=== PATIENT | female | born 1980 | race Two or more races ===

== ENCOUNTER 2024-04-01 10:08 | Emergency (ER) | payer MEDICAID, OTHER ==
[~2024-04-01] VITALS: Ht 162.6 cm; Wt 157.1 kg
[2024-04-01 11:42] VITALS: BP 141/77; PULSE 62; RESP 17; TEMP 98; O2SAT 96
[2024-04-01 12:25] LABS: Basophils # (auto) 0 10 ^3/uL (0-0.2); Basophils % (auto) 0.5 % (0.0-2.0); Eosinophils # (auto) 0.3 10 ^3/uL (0-0.8); Eosinophils % (auto) 2.9 % (0.0-7.0); Lymphocytes # (auto) 2.6 10 ^3/uL (0.4-5.4); Lymphocytes % (auto) 27.5 % (10.0-50.0); Mean Corpuscular Hemoglobin 30.4 pg (28.0-32.0); Mean Corpuscular Hgb Conc. 33.3 g/dL (32.0-36.0); Mean Corpuscular Volume 91.1 fL (80.0-100.0); Monocytes # (auto) 0.7 10 ^3/uL (0-1.3); Monocytes % (auto) 6.9 % (0.0-12.0); Neutrophils # (auto) 5.9 10 ^3/uL (1.6-8.6); Neutrophils % (auto) 62.2 % (37.0-80.0); Platelet Count (auto) 318 10^3/uL (140-450); Red Blood Cells 4.28 10^6/uL (4.0-5.20); Red Cell Distribution Width 13.4 % (11.8-14.3); White Blood Cell 9.5 10^3/uL (4.4-10.8)
[2024-04-01 12:40] LABS: Chloride 108 mmol/L (98-107); Potassium 4.3 mmol/L (3.5-5.1); Sodium 141 mmol/L (136-145)
[2024-04-01 12:41] LABS: Anion Gap 5 (5-15); Calcium 10.2 mg/dL (8.7-10.4); Carbon Dioxide 28 mmol/L (20-31)
[2024-04-01 12:46] LABS: BUN/Creatinine Ratio 16.7 (10.0-20.0); Blood Urea Nitrogen 12 mg/dL (9-23); Glucose 86 mg/dL (74-106)
== END 2024-04-01 13:01 | disposition home or self-care (01) ==
LOC: ER 10:08
DX: R04.0 Epistaxis (principal)
CPT/HCPCS: 36415; 80048; 85025

== ENCOUNTER 2024-10-03 20:42 | Inpatient (IN) | payer MEDICAID ==
[~2024-10-03] VITALS: Ht 162.6 cm; Wt 65.2 kg
[2024-10-03 21:33] LABS: Basophils # (auto) 0.1 10 ^3/uL (0-0.2); Basophils % (auto) 0.3 % (0.0-2.0); Eosinophils # (auto) 0.1 10 ^3/uL (0-0.8); Eosinophils % (auto) 0.6 % (0.0-7.0); Hematocrit 42.7 % (36.0-46.0); Hemoglobin 14.2 g/dL (12.2-16.2); Lymphocytes # (auto) 1.1 10 ^3/uL (0.4-5.4); Lymphocytes % (auto) 4.5 % (10.0-50.0); Mean Corpuscular Hemoglobin 30.1 pg (28.0-32.0); Mean Corpuscular Hgb Conc. 33.3 g/dL (32.0-36.0); Mean Corpuscular Volume 90.3 fL (80.0-100.0); Monocytes # (auto) 1.8 10 ^3/uL (0-1.3); Monocytes % (auto) 7.5 % (0.0-12.0); Neutrophils # (auto) 20.7 10 ^3/uL (1.6-8.6); Neutrophils % (auto) 87.1 % (37.0-80.0); Nucleated Red Blood Cells % 0.5 %; Platelet Count (auto) 274 10^3/uL (140-450); Red Blood Cells 4.73 10^6/uL (4.0-5.20); Red Cell Distribution Width 13.9 % (11.8-14.3); White Blood Cell 23.8 10^3/uL (4.4-10.8)
[2024-10-03 21:40] LABS: Chloride 103 mmol/L (98-107); Potassium 3.7 mmol/L (3.5-5.1); Sodium 139 mmol/L (136-145)
[2024-10-03 21:41] LABS: Anion Gap 11 (5-15); Calcium 10.1 mg/dL (8.7-10.4); Carbon Dioxide 25 mmol/L (20-31)
[2024-10-03 21:46] LABS: BUN/Creatinine Ratio 13.8 (10.0-20.0); Blood Urea Nitrogen 11 mg/dL (9-23); Glucose 98 mg/dL (74-106)
--- NOTE | 2024-10-03 21:49 | DVH ---
Clinical History: right leg pain Comparison: None Technique: Duplex Doppler evaluation of the deep venous system of the right lower extremity from the common femo ral vein to the popliteal vein including color Doppler and spectral/pulsed waveform analysis was perf ormed. Findings: The common femoral vein demonstrates appropriate compressibility and waveform variability. There is compressibility/patency of the great saphenous vein at the proximal thigh. The femoral vein demonstrates appropriate compressibility and waveform variability. The deep femoral vein demonstrates appropriate compressibility and waveform variability. The popliteal vein demonstrates appropriate compressibility and waveform variability. There is normal compressibility at the tibioperoneal trunk. Impression: 1. No RIGHT deep venous thrombosis. 2. If clinical concern/symptoms persist or worsen, short-interval follow-up study is suggested.
--- NOTE | 2024-10-03 22:10 | ED.PDOC ---
History of Present Illness(SKN HPI Comments 44-YEAR-OLD FEMALE PRESENTS TO ER WITH COMPLAINTS OF RIGHT LEG PAIN X3 DAYS. PATIENT WITH PAST MEDICAL HISTORY SIGNIFICANT FOR CHF, HYPERTENSION, HYPERLIPIDEMIA, MD AND CELLULITIS OF RIGHT LOWER EXTREMITY PRESENTS TO ER FOR EVALUATION OF RIGHT LOWER LEG PAIN/SWELLING/REDNESS WITH ASSOCIATED CHILLS AND FEVER X 3 DAYS. STATES SHE HAS HAD SIMILAR SYMPTOMS WHERE SHE HAS HAD TO BE ADMITTED FOR CELLULITIS OF RIGHT LEG. PATIENT ALSO ENDORSES A PRODUCTIVE COUGH WITH GREEN PHLEGM THAT SHE HAS HAD X2 DAYS. DENIES SHORTNESS OF BREATH, CHEST PAIN, HEADACHE OR ANY FURTHER SYMPTOMS/COMPLAINTS Chief Complaint: Flu like Time Seen by MD: 21:07 Primary Care Provider: Dr. Hardwick History of Present Illness: Nurses Notes, Medications, Allergies Allergies: Coded Allergies: NO KNOWN ALLERGIES (Unverified , 04/01/24) Information Source: Patient Mode of Arrival: EMS Past Medical History PAST MEDICAL HISTORY: CHF, High Lipids, HTN, MD Past Medical History (Other): CELLULITIS RIGHT LOWER EXTREMITY Surgical History (Other): GASTRIC SLEEVE Family History Family History: Unknown Social History Smoker: Non-Smoker Alcohol: Denies ETOH Use Drugs: Denies Drug Use Lives In: Home Constitutional: reports: others ( STATED IN HPI) EENTM: denies: blurred vision, double vision, ear bleeding, ear discharge, ear drainage, ear pain, ear ringing, eye pain, eye redness, hearing loss, mouth pain, mouth swelling, nasal discharge, nose bleeding, nose congestion, nose pain, photophobia, tearing, throat pain, throat swelling, voice changes, others Respiratory: reports: others ( STATED IN HPI) Cardiovascular: denies: chest pain, dizzy spells, diaphoresis, Dyspnea on exertion, edema, irregular heart beat, left arm pain, lightheadedness, palpitations, PND, syncope, others Gastrointestinal: denies: abdomen distended, abdominal pain, blood streaked bowels, constipated, diarrhea, dysphagia, difficulty swallowing, hematemesis, melena, nausea, poor appetite, poor fluid intake, rectal bleeding, rectal pain, vomiting, others Genitourinary: denies: abnormal vagina bleeding, burning, dyspareunia, dysuria, flank pain, frequency, hematuria, incontinence, pain, , vagina discharge, urgency, others Neurological: denies: dizziness, fainting, headache, left sided numbness, left sided weakness, numbness, paresthesia, pre-existing deficit, right sided numbness, right sided weakness, seizure, speech problems, tingling, tremors, weakness, others Musculoskeletal: denies: back pain, gout, joint pain, joint swelling, muscle pain, muscle stiffness, neck pain, others Integumetry: reports: others ( STATED IN HPI) Allergic/Immunocompromised: denies: Difficulty Healing, Frequent Infections, Hives, Itching, others Hematologic/Lymphatic: denies: anemia, blood clots, easy bleeding, easy bruising, swollen glands, others Endocrine: denies: excessive hunger, excessive sweating, excessive thirst, excessive urination, flushing, intolerance to cold, intolerance to heat, unexplained weight gain, unexplained weight loss, others Psychiatric: denies: anxiety, bipolar disorder, depression, hopeless, panic disorder, schizophrenia, sleepless, suicidal, others Physical Exam General Appearance: No Apparent Distress, Obese HEENT: PERRL/EOMI Neck: Full Range of Motion, Non-Tender, Normal Respiratory: Chest Non-Tender, Lungs Clear, No Accessory Muscle Use, No Respiratory Distress, Normal Breath Sounds Cardiovascular: No Murmur, No Gallop, Regular Rate/Rhythm Breast Exam: Deferred Gastrointestinal: Non Tender, No Pulsatile Mass, Soft Genitalia: Deferred Pelvic: Deferred Rectal: Deferred Extremities: Calf tenderness (NOTED TO RIGHT LOWER CALF), Normal capillary refill, Normal range of motion Neurologic: Alert, 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 NO OPEN WOUNDS APPRECIATED) Peripheral Pulses: 2+ dorsalis pedis (R), 2+ dorsalis pedis (L) Lymphatic: No Adenopathy Was a procedure done? Was a procedure done?: No Sedation Sedation?: No Differential Diagnosis (INTG) Differential Diagnosis: Abrasion Differential Diagnosis: Abscess, Impetigo Abscess: Gas Gangrene Differential Diagnosis: Other (DVT) X-Ray, Labs, Meds, VS Vital Signs Date Time Temp Pulse Resp B/P (MAP) Pulse Ox O2 Delivery O2 Flow Rate FiO2 10/03/24 22:06 86 18 94 Room Air 10/03/24 21:59 98.8 98.8 5/1/25 21:40 100.1 87 16 117/61 (79) 94 100.1 10/03/24 21:40 Room Air* 0 21 10/03/24 20:49 99.2 86 18 127/61 (83) 94 99.2 Lab Test 10/03/24 21:50 10/03/24 21:40 10/03/24 21:20 Range/Units Lactic Acid Level 1.4 0.4-2.0 mmol/L Influenza Type A Antigen Negative Negative Influenza Type B Antigen Negative Negative SARS-CoV-2 Antigen (Rapid) Negative NEGATIVE White Blood Count 23.8 H 4.4-10.8 10^3/uL Red Blood Count 4.73 4.0-5.20 10^6/uL Hemoglobin 14.2 12.2-16.2 g/dL Hematocrit 42.7 36.0-46.0 % Mean Corpuscular Volume 90.3 80.0-100.0 fL Mean Corpuscular Hemoglobin 30.1 28.0-32.0 pg Mean Corpuscular Hemoglobin Concent 33.3 32.0-36.0 g/dL Red Cell Distribution Width 13.9 11.8-14.3 % Platelet Count 274 140-450 10^3/uL Mean Platelet Volume 7.1 6.9-10.8 fL Neutrophils (%) (Auto) 87.1 H 37.0-80.0 % Lymphocytes (%) (Auto) 4.5 L 10.0-50.0 % Monocytes (%) (Auto) 7.5 0.0-12.0 % Eosinophils (%) (Auto) 0.6 0.0-7.0 % Basophils (%) (Auto) 0.3 0.0-2.0 % Neutrophils # (Auto) 20.7 H 1.6-8.6 10 ^3/uL Lymphocytes # (Auto) 1.1 0.4-5.4 10 ^3/uL Monocytes # (Auto) 1.8 H 0-1.3 10 ^3/uL Eosinophils # (Auto) 0.1 0-0.8 10 ^3/uL Basophils # (Auto) 0.1 0-0.2 10 ^3/uL Nucleated Red Blood Cells 0.5 % Sodium Level 139 136-145 mmol/L Potassium Level 3.7 3.5-5.1 mmol/L Chloride Level 103 98-107 mmol/L Carbon Dioxide Level 25 20-31 mmol/L Anion Gap 11 5-15 Blood Urea Nitrogen 11 9-23 mg/dL Creatinine 0.80 0.550-1.02 mg/dL Glomerular Filtration Rate Calc 93 >90 mL/min BUN/Creatinine Ratio 13.8 10.0-20.0 Serum Glucose 98 74-106 mg/dL Calcium Level 10.1 8.7-10.4 mg/dL Current Medications Medications (Trade) Dose Ordered Sig/Earnest Route Start Time Stop Time Status Last Admin Acetaminophen (Tylenol Tablet) 650 mg ONCE ONCE PO 10/03/24 22:00 10/03/24 22:01 DC 10/03/24 22:25 Piperacillin Sod/ Tazobactam Sod 100 ml @ 100 mls/hr ONCE ONCE IV 10/03/24 22:30 10/03/24 23:29 DC 10/03/24 23:11 PATIENT: BETH SMITH IACCT: [id number] UNIT: [id number] : 1980 LOC: ER ROOM / BED: / AGE / SEX: 44 / F ADM STATUS: REG ER SERVICE 13 ORDERING PHYSICIAN: RODOLFO BROOKS PROCEDURE(s): RLDVT - RT Lower DVT REASON: right leg pain ORDER NUMBER(s): [id number], ACCESSION NUMBER(s): [id number] Clinical History: right leg pain Comparison: None Technique: Duplex Doppler evaluation of the deep venous system of the right lower extremity from the common femoral vein to the popliteal vein including color Doppler and spectral/pulsed waveform analysis was performed. Findings: The common femoral vein demonstrates appropriate compressibility and waveform variability. There is compressibility/patency of the great saphenous vein at the proximal thigh. The femoral vein demonstrates appropriate compressibility and waveform variability. The deep femoral vein demonstrates appropriate compressibility and waveform variability. The popliteal vein demonstrates appropriate compressibility and waveform variability. There is normal compressibility at the tibioperoneal trunk. Impression: 1. No RIGHT deep venous thrombosis. 2. If clinical concern/symptoms persist or worsen, short-interval follow-up jessica teague is suggested. ATED BY: EMBER POWELL Jr., DO DICTATED DATE/TIME: 10/03/242145 SIGNED BY: EMBER POWELL Jr., SIGNED DATE/TIME: 10/03/242145 CC: PATIENT: BETH SMITH IACCT: [id number] UNIT: [id number] : 1980 LOC: ER ROOM / BED: / AGE / SEX: 44 / F ADM STATUS: REG ER SERVICE 08 ORDERING PHYSICIAN: RODOLFO BROOKS PROCEDURE(s): CXR2 - CHEST TWO VIEWS ROUTINE REASON: COUGH ORDER NUMBER(s): [id number], ACCESSION NUMBER(s): [id number] CHEST RADIOGRAPH Indication: COUGH Technique: Frontal and lateral view of the chest was obtained Comparison: None FINDINGS: Lines and Tubes: None Lungs: Clear Pleura: No effusion. No pneumothorax. Cardiomediastinal contours: Unremarkable IMPRESSION: No abnormality demonstrated. ATED BY: VIDAL CRUZ MD DICTATED DATE/TIME: 10/03/242241 SIGNED BY: VIDAL CRUZ MD SIGNED DATE/TIME: 10/03/242241 CC: CBC REVIEWED-WBC 23.8 BMP REVIEWED-UNREMARKABLE LACTIC ACID REVIEWED - NORMAL BLOOD CULTURES ORDERED CHEST X-RAY ORDERED RIGHT LOWER DVT ULTRASOUND REVIEWED HEP-LOCK IV ORDERED ZOSYN IV ORDERED TYLENOL 650 MG P.O. ORDERED PATIENT RESTING COMFORTABLY AT BEDSIDE, IN NO DISTRESS PATIENT ADMITTED TO HOSPITALIST FOR CELLULITIS OF RIGHT LOWER EXTREMITY AND NEED FOR IV ANTIBIOTICS Time of 1ST Reevaluation: 21:54 Reevaluation 1ST: N/A Patient Education/Counseling: Diagnosis, Treatment, Prognosis, Need For Follow Up Family Education/Counseling: No Family Present Departure 1 Departure Time of Disposition: 22:12 Impression: Primary Impression: Cellulitis of right lower extremity Additional Impression: Morbid obesity with BMI of 50.0-59.9, adult Disposition: 09 ADMITTED INPATIENT Condition: Stable Critical Care Note Critical Care Time?: No Stability Stability form required: No Heart Score Heart Score: Heart Score Response (Comments) Value History N/A 0 EKG N/A 0 Age N/A 0 Risk Factors N/A 0 Troponin N/A 0 Total 0 RODOLFO BROOKS October 03, 2024 22:10
[2024-10-03] MEDS: ACETAMINOPHEN 325 MG TAB PO ONE (22:25)
[2024-10-03 22:26] LABS: COVID19 ANTIGEN SOFIA FIA NEGATIVE (NEGATIVE); Rapid Influenza A Negative (Negative); Rapid Influenza B Negative (Negative)
--- NOTE | 2024-10-03 22:45 | DVH ---
CHEST RADIOGRAPH Indication: COUGH Technique: Frontal and lateral view of the chest was obtained Comparison: None FINDINGS: Lines and Tubes: None Lungs: Clear Pleura: No effusion. No pneumothorax. Cardiomediastinal contours: Unremarkable IMPRESSION: No abnormality demonstrated.
[2024-10-03] MEDS: PIPERACILLIN-TAZOB 3.375GM 100 ML IV ONE (23:11)
[2024-10-04] VITALS (9 sets, daily range): BP systolic 103–143; BP diastolic 45–67; PULSE 57–70; RESP 16–20; TEMP 98–98.5; O2SAT 93–97
[2024-10-04] MEDS ORDERED: NITROGLYCERIN 0.4 MG SL TAB SL PRN (01:15)
[2024-10-04] MEDS ORDERED: MORPHINE SULFATE INJ 2 MG/ml SYRG IV PRN (01:15)
[2024-10-04] MEDS ORDERED: hydrALAZINE HCL 20 MG/ML VL IV PRN (01:15)
[2024-10-04] MEDS ORDERED: DOCUSATE SOD 100 MG CAP PO PRN (01:15)
[2024-10-04] MEDS ORDERED: ONDANSETRON HCL 4 MG/2 ML VIAL IV PRN (01:15)
--- NOTE | 2024-10-04 01:33 | DVHHP2 ---
History of Present Illness Reason for Visit: Cellulitis of right lower extremity History of Present Illness The patient is a 44-year-old female morbidly obese with past medical history of sleep apnea, CHF, hyperlipidemia, [place], right lower extremity cellulitis, and hypertension presented to [facility] ED with complaint of recurrent right leg redness/pain associated with fever, productive cough with green phlegm for the past 3 days. Patient was seen and evaluated in the ED, laboratory data shows WBC 23.8, platelets 274, sodium 139, potassium 3.7, BUN 11, creatinine 0.8 0, glucose 98, blood pressure 118/60, heart rate 86, temperature 100.1 F trending down to 98.8 F, O2 saturation 94% on oxygen. Patient was started on IV antibiotic regimen Zosyn, please see medication orders section in the computer. On my assessment, patient denies chest pain, no headache, no dizziness, no palpitation, no shortness of breath, no nausea, no vomiting, no fever, no chills. Patient was admitted for further evaluation and medical management. Past Medical History CHF, High Lipids, HTN, [place], Cellulitis of right lower extremity, Sleep apnea, Past Surgical History Gastric sleeves Family History Reviewed, noncontributory to the management of this case. Past Social History The patient lives at home, denies smoking, alcohol or illicit drugs abuse. Review of Systems Constitutional: No: Fever, Chills, Sweats, Weakness, Malaise, Other Eyes: No: Pain, Vision change, Conjunctivae inflammation, Eyelid inflammation, Other, Redness ENT: No: Ear pain, Ear discharge, Nose pain, Nose discharge, Nose congestion, Mouth pain, Mouth swelling, Throat pain, Throat swelling, Other Respiratory: Cough; No: Dry, Shortness of breath, SOB with excertion, Wheezing, Hemoptysis, Pleuritic Pain, Sputum, Wheezing, Other Cardiovascular: No: Chest Pain, Palpitations, Orthopnea, Paroxysmal Noc. Dyspnea, Edema, Lt Headedness, Other Gastrointestinal: No: Nausea, Vomiting, Abdominal Pain, Diarrhea, Constipation, Melena, Hematochezia, Other Genitourinary: No Dysuria, No Frequency, No Incontinence, No Hematuria, No Retention, No Other Musculoskeletal: other (Right leg cellulitis), leg pain (Right); No: neck pain, shoulder pain, arm pain, back pain, hand pain, foot pain Skin: Other (Right leg redness); No: Rash, Lesions, Jaundice, Bruising Neurological: No: Weakness, Numbness, Incoordination, Change in speech, Confusion, Seizures, Other Allergies: Coded Allergies: NO KNOWN ALLERGIES (Unverified , 04/01/24) Exam Vital Signs Vital Signs Date Time Temp Pulse Resp B/P (MAP) Pulse Ox O2 Delivery O2 Flow Rate FiO2 10/03/24 22:06 86 18 94 Room Air 10/03/24 21:59 98.8 98.8 10/03/24 21:40 117/61 (79) 10/03/24 21:40 0 21 General Appearance: Alert, Oriented X3, Cooperative, No acute distress HEENT: Atraumatic, PERRLA, EOMI, Mucous membr. moist/pink Respiratory: Normal air movement Cardiovascular: Regular rate, Normal S1, Normal S2, No murmurs Abdominal: Normal bowel sounds, Soft, No tenderness, No hepatospenomegaly, No masses Extremities: No clubbing, No cyanosis, No edema, Normal pulses, No tenderness/swelling Skin: No rashes, No breakdown, No significant lesion Neuro: Normal gait, Normal speech, Strength at 5/5 X4 ext, Normal tone, Sensation intact, Cranial nerves 3-12 NL, Reflexes 2+ Psych/Mental Status: Mental status NL, Mood NL Labs/Xrays Labs Test 10/03/24 21:50 10/03/24 21:40 10/03/24 21:20 Range/Units Lactic Acid Level 1.4 0.4-2.0 mmol/L Influenza Type A Antigen Negative Negative Influenza Type B Antigen Negative Negative SARS-CoV-2 Antigen (Rapid) Negative NEGATIVE White Blood Count 23.8 H 4.4-10.8 10^3/uL Red Blood Count 4.73 4.0-5.20 10^6/uL Hemoglobin 14.2 12.2-16.2 g/dL Hematocrit 42.7 36.0-46.0 % Mean Corpuscular Volume 90.3 80.0-100.0 fL Mean Corpuscular Hemoglobin 30.1 28.0-32.0 pg Mean Corpuscular Hemoglobin Concent 33.3 32.0-36.0 g/dL Red Cell Distribution Width 13.9 11.8-14.3 % Platelet Count 274 140-450 10^3/uL Mean Platelet Volume 7.1 6.9-10.8 fL Neutrophils (%) (Auto) 87.1 H 37.0-80.0 % Lymphocytes (%) (Auto) 4.5 L 10.0-50.0 % Monocytes (%) (Auto) 7.5 0.0-12.0 % Eosinophils (%) (Auto) 0.6 0.0-7.0 % Basophils (%) (Auto) 0.3 0.0-2.0 % Neutrophils # (Auto) 20.7 H 1.6-8.6 10 ^3/uL Lymphocytes # (Auto) 1.1 0.4-5.4 10 ^3/uL Monocytes # (Auto) 1.8 H 0-1.3 10 ^3/uL Eosinophils # (Auto) 0.1 0-0.8 10 ^3/uL Basophils # (Auto) 0.1 0-0.2 10 ^3/uL Nucleated Red Blood Cells 0.5 % Sodium Level 139 136-145 mmol/L Potassium Level 3.7 3.5-5.1 mmol/L Chloride Level 103 98-107 mmol/L Carbon Dioxide Level 25 20-31 mmol/L Anion Gap 11 5-15 Blood Urea Nitrogen 11 9-23 mg/dL Creatinine 0.80 0.550-1.02 mg/dL Glomerular Filtration Rate Calc 93 >90 mL/min BUN/Creatinine Ratio 13.8 10.0-20.0 Serum Glucose 98 74-106 mg/dL Calcium Level 10.1 8.7-10.4 mg/dL PATIENT: BETH SMITH IACCT: [id number] UNIT: [id number] : 1980 LOC: ER ROOM / BED: / AGE / SEX: 44 / F ADM STATUS: REG ER SERVICE 13 ORDERING PHYSICIAN: RODOLFO BROOKS PROCEDURE(s): RLDVT - RT Lower DVT REASON: right leg pain ORDER NUMBER(s): [id number], ACCESSION NUMBER(s): [id number] Clinical History: right leg pain Comparison: None Technique: Duplex Doppler evaluation of the deep venous system of the right lower extremity from the common femoral vein to the popliteal vein including color Doppler and spectral/pulsed waveform analysis was performed. Findings: The common femoral vein demonstrates appropriate compressibility and waveform variability. There is compressibility/patency of the great saphenous vein at the proximal thigh. The femoral vein demonstrates appropriate compressibility and waveform variability. The deep femoral vein demonstrates appropriate compressibility and waveform variability. The popliteal vein demonstrates appropriate compressibility and waveform variability. There is normal compressibility at the tibioperoneal trunk. Impression: 1. No RIGHT deep venous thrombosis. 2. If clinical concern/symptoms persist or worsen, short-interval follow-up study is suggested. ORDERING PHYSICIAN: RODOLFO BROOKS PROCEDURE(s): CXR2 - CHEST TWO VIEWS ROUTINE REASON: COUGH ORDER NUMBER(s): [id number], ACCESSION NUMBER(s): [id number] CHEST RADIOGRAPH Indication: COUGH Technique: Frontal and lateral view of the chest was obtained Comparison: None FINDINGS: Lines and Tubes: None Lungs: Clear Pleura: No effusion. No pneumothorax. Cardiomediastinal contours: Unremarkable IMPRESSION: No abnormality demonstrated. Assessment/Plan Assessment/Plan Cellulitis of right lower extremity Leukocytosis, unspecified Morbid obesity with BMI of 50.0-59.9, adult Plan 1. Admit to med surge unit 2. Breathing treatment 3. Pain control management 4. IV antibiotic management 5. Management of fluids and electrolytes 6. Consultation for hospitalist 7. Diagnostic test chest x-ray 8. DVT prophylaxis on SCDs 9. Repeat labs CBC, CMP in a.m. 10. Home medication reviewed and reconciled 11. Continue with current medical management 12. Treatment plan discussed with patient and RN. Patient verbalized understanding. Plan discussed with: Patient, Other (RN) Problem List: (1) Cellulitis of right lower extremity (2) Leukocytosis, unspecified (3) Morbid obesity with BMI of 50.0-59.9, adult Date of Service: October 04, 2024 Billing Provider: ROLANDA GOLDBERG DNP Common Visit Codes: [id number] INP/OBS CARE (HIGH) ROLANDA GOLDBERG DNP October 04, 2024 01:33
[2024-10-04] MEDS ORDERED: ATOR20TA50 PO (04:03)
[2024-10-04] MEDS ORDERED: FENO67CA16 PO (04:03)
[2024-10-04] MEDS ORDERED: LISI20TA56 PO (04:03)
[2024-10-04] MEDS ORDERED: FURO80TA3 PO (04:03)
[2024-10-04] MEDS ORDERED: SEMA2.4I (04:03)
[2024-10-04] MEDS: HYDROcodone-ACET 5/325MG TAB PO PRN (04:20)
[2024-10-04] MEDS: PIPERACILLIN-TAZOB 3.375GM 100 ML IV SCH (05:39)
[2024-10-04 05:45] LABS: Basophils # (auto) 0 10 ^3/uL (0-0.2); Basophils % (auto) 0.2 % (0.0-2.0); Eosinophils # (auto) 0.1 10 ^3/uL (0-0.8); Eosinophils % (auto) 0.6 % (0.0-7.0); Hematocrit 39.4 % (36.0-46.0); Hemoglobin 13.5 g/dL (12.2-16.2); Lymphocytes # (auto) 1.1 10 ^3/uL (0.4-5.4); Lymphocytes % (auto) 6.7 % (10.0-50.0); Mean Corpuscular Hemoglobin 30.6 pg (28.0-32.0); Mean Corpuscular Hgb Conc. 34.2 g/dL (32.0-36.0); Mean Corpuscular Volume 89.5 fL (80.0-100.0); Monocytes # (auto) 0.9 10 ^3/uL (0-1.3); Monocytes % (auto) 5.9 % (0.0-12.0); Neutrophils # (auto) 13.9 10 ^3/uL (1.6-8.6); Neutrophils % (auto) 86.6 % (37.0-80.0); Nucleated Red Blood Cells % 0.1 %; Platelet Count (auto) 259 10^3/uL (140-450); Red Blood Cells 4.41 10^6/uL (4.0-5.20); White Blood Cell 16.1 10^3/uL (4.4-10.8)
[2024-10-04] MEDS: SODIUM CHLOR 0.9% PF (SALINE LOCK) 10ML VIAL/SYR IV SCH (06:00)
[2024-10-04 06:09] LABS: Alanine Aminotransferase 16 U/L (7-40); Albumin 4.3 g/dL (3.2-4.8); Alkaline Phosphatase 53 U/L (46-116); Anion Gap 7 (5-15); BUN/Creatinine Ratio 14.9 (10.0-20.0); Bilirubin, Total 0.8 mg/dL (0.2-1.0); Blood Urea Nitrogen 11 mg/dL (9-23); Calcium 9.6 mg/dL (8.7-10.4); Carbon Dioxide 27 mmol/L (20-31); Chloride 104 mmol/L (98-107); Glucose 101 mg/dL (74-106); Potassium 3.6 mmol/L (3.5-5.1); Sodium 138 mmol/L (136-145)
[2024-10-04 06:10] LABS: Aspartate Aminotransferase 10 U/L (13-40)
[2024-10-04] MEDS: ASPirin 81 mg TAB PO SCH (08:46)
[2024-10-04] MEDS ORDERED: VANCOMYCIN PER PHARMACY 0 MG IV SCH (11:15)
[2024-10-04] MEDS: FUROSEMIDE 100 MG/10ML VIAL IV SCH ×2 (11:57→18:36)
--- NOTE | 2024-10-04 12:43 | DVHPNRES ---
Progress Note Date Seen: October 04, 2024 Resident Creating Document: GIULIANO ROJAS RESIDENT Has the PT tested + for MRSA If YES, has PT been informed?: No Medical Necessity Reason Pt with a Central, PICC or Fol: No Subjective Review of Systems This is a 44-year-old female with past medical history of hypertension, CHF, dyslipidemia, CT, obstructive sleep apnea, morbidly obese who presented to the ED with chief complaint of right lower extremity swelling and redness. The patient states that she usually has bilateral lower extremity swelling but this time started worsening in the right lower extremity four days ago before coming to the ED associated with erythema, swelling and warm sensation to the touch. Patient also reported productive cough but no shortness of breath or chest pain. Upon admission, WBC was significantly elevated at 23.8 but otherwise BNP was grossly unremarkable. Liver enzymes were negative flu and COVID were negative as well. We ordered a right lower extremity venous Doppler which ruled out DVT. Initial chest x-ray was performed and was showing no evidence of clear consolidations and was grossly clear. Patient was started on IV antibiotics and admitted for further assessment and management. Patient seen and examined at bedside. Patient is alert and oriented in person, place and time. Patient still reporting right lower extremity tenderness to palpation. Upon my examination right lower extremity was having a demarcated erythema surrounding the right ankle that was warmth to palpation and causing discomfort upon light palpation. WBC this morning came slightly down to 16.1. Patient was on IV Zosyn, we decided to add IV vancomycin as well, since the patient received previous antibiotics for similar episode a couple of months back. We will monitor kidney function closely due to use of IV antibiotics, we will order echocardiogram and treat according to the results. ROS: Constitutional: Denies weight loss, fever and chills. HEENT: Denies changes in vision and hearing. Respiratory: Denies shortness of breath and cough Cardiovascular: Denies chest discomfort or palpitations GI: Denies abdominal pain, nausea, vomiting and diarrhea. : Denies dysuria and urinary frequency. Musculoskeletal: Reports right lower extremity cellulitis, erythema and swelling limited to the right ankle. Denies myalgias and joint pain Skin: Erythema and swelling in the right lower extremity in the right ankle as described above. Denies rash and pruritus. Neurological: Denies dizziness, headache, vision or hearing problems Objective vital signs Vital Sign Date Time Temp Pulse Resp B/P (MAP) Pulse Ox O2 Delivery O2 Flow Rate FiO2 10/04/24 11:57 107/52 10/04/24 08:45 98.1 66 18 93 98.1 10/03/24 22:06 Room Air 10/03/24 21:40 0 21 Total Intake and Output 10/03/24 10/03/24 10/04/24 15:00 23:00 07:00 Intake Total 100 ml Balance 100 ml medications Current Medications Medications Dose Ordered Sig/Earnest Route Start Time Stop Time Status Last Admin Dose Admin Piperacillin Sod/ Tazobactam Sod 100 ml @ 25 mls/hr Q8HR IV 10/04/24 06:00 10/04/24 05:39 25 MLS/HR Atorvastatin Calcium 20 mg HS PO 10/04/24 22:00 Furosemide 60 mg DAILY IV 10/04/24 10:00 10/04/24 11:57 60 MG Hydralazine HCl 10 mg Q6HP PRN IV 10/04/24 01:15 Aspirin 81 mg DAILY PO 10/04/24 10:00 10/04/24 08:46 81 MG Sodium Chloride 10 ml Q8HR IV 10/04/24 06:00 10/04/24 06:00 10 ML Acetaminophen/ Hydrocodone Bitart 1 tab Q4HP PRN PO 10/04/24 01:15 10/04/24 08:45 1 TAB Ondansetron HCl 4 mg Q4HP PRN IV 10/04/24 01:15 Docusate Sodium 100 mg BIDPRN PRN PO 10/04/24 01:15 Acetaminophen 650 mg Q6HP PRN PO 10/04/24 01:15 Nitroglycerin 0.4 mg Q5MINP PRN SL 10/04/24 01:15 Morphine Sulfate 2 mg Q30M PRN IV 10/04/24 01:15 Vancomycin HCl 0 ml @ 0 mls/hr UD IV 10/04/24 11:15 UNV Examination Physical Examination General: Patient alert and oriented in person, place and time. Patient following commands. Morbidly obese HEENT: Normocephalic, atraumatic, moist mucous membranes Respiratory/pulmonary: Clear lungs bilaterally, no associated crackles or wheezes. Cardiovascular: Normal heart sounds S1 and S2 with no associated murmurs Abdomen: Abdomen nondistended, there is no pain to palpation in any of the abdominal quadrants, no palpable masses. Extremities: There is bilateral lower extremity swelling that is worse in the right lower extremity associated with erythema and warm sensation to palpation. There is also tenderness to mild touch at the level of the right ankle. Erythema was demarcated with a marker to determine improvement. Peripheral Pulses: 3+ Radial (R). 3+ Radial (L). 3+ Dorsalis pedis (R). 3+ Dorsalis pedis(L) Skin: No rashes or pruritus, there is no sacral edema present at this time. Neurological: Intact cranial nerves with no focal neurologic deficits laboratory and microbiology Laboratory Tests 10/04/24 04:48 Test 10/04/24 04:48 Range/Units Serum Glucose 101 74-106 mg/dL Labs and/or images reviewed: Labs reviewed by me, Image(s) reviewed by me Problem List/Assessment/Plan Problem List/Assessment/Plan Assessment/plan Sepsis due to right lower extremity cellulitis Acute Right lower extremity cellulitis Ruled out DVT -initial WBC was 23.8 now 16.1 -initial right lower extremity venous Doppler showed no evidence of DVT -started IV vancomycin -continue IV Zosyn -demarcated erythema with a marker to determine improvement -furosemide 40 mg IV b.i.d. -monitor kidney function -pain medication Leola/morphine Acute systolic/diastolic heart failure -BNP was 32.94 -ordered echocardiogram -waiting to determine LVEF nine with that start pertinent treatment -furosemide 40 mg IV b.i.d. Primary hypertension -start lisinopril 10 mg daily -currently on furosemide 40 mg IV b.i.d. 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 Broussard Plan discussed with: Patient, Other (Nurse) My Orders My Orders Orders - GIULIANO ROJAS RESIDENT Procedure Category Date Status Time Vancomycin Per PHA 10/04/24 Logged Pharmacy 11:15 Echo 2d Mode Cardiac US 10/04/24 Logged DOP 11:03 Addendum Addendum Addendum I was physically present for the cain portions of the service provided to patient by THE RESIDENT. I have reviewed the documentation, discussed the case with resident and agree with the resident's documentation except as noted. Also the patient's clinical case was discussed with the patient's nurse. This medical document was created using an electronic medical record system with computerized dictation system. Although this document has been carefully reviewed, there might still be some phonetic and typographical errors. These areas are purely typographical due to imperfections of the software programs, and do not reflect any compromise in the patient's medical care. Late signature. Date of Service: October 04, 2024 Billing Provider: OWEN BROUSSARD MD Common Visit Codes: [id number] INP/OBS CARE(HIGH) Secondary Visit Codes: [id number] CARE PLAN 30 MINUTES (20 minutes) GIULIANO ROJAS RESIDENT October 04, 2024 12:43 OWEN BROUSSARD MD October 05, 2024 10:33
[2024-10-04 13:08] LABS: Triglycerides 98 mg/dL (< 150)
[2024-10-04 13:09] LABS: LDL Cholesterol 61 mg/dL (< 100)
[2024-10-04 13:10] LABS: Cholesterol 111 mg/dL (< 200); HDL Cholesterol 36 mg/dL (40-59)
[2024-10-04] MEDS: VANCOMYCIN 750MG KIT 100 ML IV SCH (21:46)
[2024-10-04] MEDS: ATORVASTATIN 20 MG TAB PO SCH ×2 (21:46)
[2024-10-05] VITALS (8 sets, daily range): BP systolic 105–120; BP diastolic 47–71; PULSE 56–68; RESP 16–20; TEMP 97.7–98.7; O2SAT 92–97
[2024-10-05] MEDS: PIPERACILLIN-TAZOB 3.375GM 100 ML IV SCH
[2024-10-05 07:38] LABS: Alanine Aminotransferase 16 U/L (7-40); Albumin 4.5 g/dL (3.2-4.8); Alkaline Phosphatase 58 U/L (46-116); Anion Gap 7 (5-15); BUN/Creatinine Ratio 12.8 (10.0-20.0); Blood Urea Nitrogen 10 mg/dL (9-23); Calcium 9.9 mg/dL (8.7-10.4); Carbon Dioxide 27 mmol/L (20-31); Chloride 101 mmol/L (98-107); Glucose 90 mg/dL (74-106); Potassium 3.7 mmol/L (3.5-5.1); Total Protein 7.5 g/dL (5.7-8.2)
[2024-10-05 07:39] LABS: Bilirubin, Total 0.6 mg/dL (0.2-1.0)
[2024-10-05 07:44] LABS: Aspartate Aminotransferase 13 U/L (13-40); Sodium 135 mmol/L (136-145)
[2024-10-05 07:48] LABS: Basophils # (auto) 0 10 ^3/uL (0-0.2); Basophils % (auto) 0.5 % (0.0-2.0); Eosinophils # (auto) 0.3 10 ^3/uL (0-0.8); Eosinophils % (auto) 3.4 % (0.0-7.0); Hematocrit 41.3 % (36.0-46.0); Hemoglobin 14.1 g/dL (12.2-16.2); Lymphocytes # (auto) 1.2 10 ^3/uL (0.4-5.4); Lymphocytes % (auto) 13.3 % (10.0-50.0); Mean Corpuscular Hemoglobin 30.8 pg (28.0-32.0); Mean Corpuscular Hgb Conc. 34.1 g/dL (32.0-36.0); Mean Corpuscular Volume 90.1 fL (80.0-100.0); Monocytes # (auto) 0.8 10 ^3/uL (0-1.3); Monocytes % (auto) 9.2 % (0.0-12.0); Neutrophils # (auto) 6.6 10 ^3/uL (1.6-8.6); Neutrophils % (auto) 73.6 % (37.0-80.0); Nucleated Red Blood Cells % 0.1 %; Platelet Count (auto) 273 10^3/uL (140-450); Red Blood Cells 4.59 10^6/uL (4.0-5.20); White Blood Cell 8.9 10^3/uL (4.4-10.8)
[2024-10-05] MEDS: LISINOPRIL 5 MG TAB PO SCH (09:17)
[2024-10-05] MEDS: THROAT LOZENGES(CEPASTAT) MT PRN (09:24)
--- NOTE | 2024-10-05 14:10 | DVHSR ---
APPROVED REPORT EXAM: LIMITED Two-dimensional and M-mode echocardiogram with Doppler and color Doppler. Blood Pressure: 134/70 mmHg INDICATION Bilateral lower extremity edema HX of CHF RISK FACTORS Obesity: Height: 5' 4", Weight: 342 DIMENSIONS LVDd5.1 (3.8-5.7cm)LA (2D)3.7 (1.9-4.0cm)Aortic Root3.8 (2.0-3.7cm) LVDs3.5 (2.5-4.0cm)LA (MM) (1.9-4.0cm)Aortic Cusp Exc1.9 (1.5-2.0cm) EF (%) 60.0 (55-70%)Rt. Atrium4.0 (1.9-4.0cm)Asc. Aorta cm IVSd1.0 (0.7-1.1cm)RV (D) (1.8-2.4cm) PWd0.8 (0.7-1.1cm) Mitral Valve MitralMitral Stenosis E wave1.20m/sMV Mean GR.mmHg A wave0.80m/sMV Peak GR.mmHg E/A ratio1.52D MVAcm2 Aortic Valve Aortic ValveAortic Stenosis V11.30m/Erika Mean GR.7mmHg V21.80m/Erika Peak GR.14mmHg LVOT Diameter2.6 (1.8-2.4cm)Doppler AVA3.83cm2 Other Information Quality : Technically LimitedRhythm : Technically limited study due to body habitus. Conclusion lvef 55% by visual estimate normal rv function normal atria no severe valve abnormalities noted
[2024-10-05] MEDS: VANCOMYCIN 750MG KIT 100 ML IV SCH (18:10)
--- NOTE | 2024-10-05 19:53 | DVHPN2 ---
Reviewed: Care Plan, H&P, Labs, Medications, Previous Orders, Radiology Changes from previous H/P or p: No Changes General: Per HPI Eyes: No Pain, No Vision change, No Conjunctivae inflammation, No Eyelid inflammation, No Other, No Redness ENT: No Ear pain, No Ear discharge, No Nose pain, No Nose discharge, No Nose congestion, No Mouth pain, No Mouth swelling, No Throat pain, No Throat swelling, No Other Cardiovascular: No Chest Pain, No Palpitations, No Orthopnea, No Paroxysmal Noc. Dyspnea, No Edema, No Lt Headedness, No Other Respiratory: Cough; No Dry, No Shortness of breath, No SOB with excertion, No Wheezing, No Hemoptysis, No Pleuritic Pain, No Sputum, No Other Gastrointestinal: No Nausea, No Vomiting, No Abdominal Pain, No Diarrhea, No Constipation, No Melena, No Hematochezia, No Other Genitourinary: No Dysuria, No Frequency, No Incontinence, No Hematuria, No Retention, No Other Musculoskeletal: other (Right leg cellulitis); No neck pain, No shoulder pain, No arm pain, No back pain, No hand pain; leg pain (Right); No foot pain Skin: No Rash, No Lesions, No Jaundice, No Bruising; Other (Right leg redness) Objective Vitals Vital Signs Date Time Temp Pulse Resp B/P (MAP) Pulse Ox O2 Delivery O2 Flow Rate FiO2 10/05/24 17:34 105/55 10/05/24 17:18 98.0 57 17 97 98.0 10/05/24 09:46 Room Air* 0 21 Intake/Output Intake and Output 10/05/24 07:00 Intake Total 1650 ml Balance 1650 ml Intake Oral 1450 ml IV Total 200 ml # Voids 5 General Appearance: Alert, Oriented X3 Medications Current Medications Medications Dose Ordered Sig/Earnest Route Start Time Stop Time Status Last Admin Dose Admin Atorvastatin Calcium 20 mg HS PO 10/04/24 22:00 10/04/24 21:46 20 MG Hydralazine HCl 10 mg Q6HP PRN IV 10/04/24 01:15 Aspirin 81 mg DAILY PO 10/04/24 10:00 10/05/24 09:16 81 MG Sodium Chloride 10 ml Q8HR IV 10/04/24 06:00 10/05/24 13:01 10 ML Acetaminophen/ Hydrocodone Bitart 1 tab Q4HP PRN PO 10/04/24 01:15 10/05/24 15:39 1 TAB Ondansetron HCl 4 mg Q4HP PRN IV 10/04/24 01:15 Docusate Sodium 100 mg BIDPRN PRN PO 10/04/24 01:15 Acetaminophen 650 mg Q6HP PRN PO 10/04/24 01:15 Nitroglycerin 0.4 mg Q5MINP PRN SL 10/04/24 01:15 Morphine Sulfate 2 mg Q30M PRN IV 10/04/24 01:15 Vancomycin HCl 0 ml @ 0 mls/hr UD IV 10/04/24 11:15 Furosemide 40 mg BIDD IV 10/04/24 18:00 10/05/24 17:34 40 MG Lisinopril 10 mg DAILY PO 10/05/24 10:00 10/05/24 09:17 10 MG Atorvastatin Calcium 20 mg HS PO 10/04/24 22:00 Piperacillin Sod/ Tazobactam Sod 100 ml @ 25 mls/hr Q6HR IV 10/05/24 00:00 10/05/24 17:34 25 MLS/HR Throat Lozenges 1 wesley Q2HP PRN MT 10/04/24 19:00 10/05/24 09:24 1 WESLEY Vancomycin HCl 100 ml @ 100 mls/hr Q6H IV 10/05/24 18:00 10/05/24 18:10 100 MLS/HR Laboratory Results Laboratory Tests 10/05/24 06:14 Chemistry Test 10/05/24 06:14 Albumin 4.5 g/dL (3.2-4.8) Calcium Level 9.9 mg/dL (8.7-10.4) Total Protein 7.5 g/dL (5.7-8.2) LFT Test 10/05/24 06:14 Alanine Aminotransferase (ALT) 16 U/L (7-40) Alkaline Phosphatase 58 U/L (46-116) Aspartate Amino Transferase (AST) 13 U/L (13-40) Total Bilirubin 0.6 mg/dL (0.2-1.0) Microbiology Microbiology Date/Time Source Procedure Growth Status 10/03/24 21:50 Blood Blood Culture - Preliminary NO GROWTH AFTER 24 HOURS OF INCUBATION. Resulted Labs and/or images reviewed: Labs reviewed by me, Image(s) reviewed by me Assessment/Plan Assessment/Plan Cellulitis of right lower extremity Leukocytosis, unspecified Morbid obesity with BMI of 50.0-59.9, adult continue with current care areas still red Plan discussed with: Patient Date of Service: October 05, 2024 Billing Provider: EV JASON DO Common Visit Codes: [id number] INP/OBS CARE(HIGH) EV JASON DO October 05, 2024 19:53
[2024-10-06] VITALS (7 sets, daily range): BP systolic 98–132; BP diastolic 48–71; PULSE 57–68; RESP 17–19; TEMP 97.3–98.7; O2SAT 92–97
[2024-10-06] MEDS: ACETAMINOPHEN 325 MG TAB PO PRN (08:01)
[2024-10-06] MEDS ORDERED: LEVO500T91 PO (12:51)
--- NOTE | 2024-10-06 12:56 | DVHDS2 ---
Discharge Summary Date of Admission October 04, 2024 at 01:14 Date of Discharge: October 06, 2024 Labs/Diagnostic Data: Laboratory Results Test 10/06/24 11:21 10/05/24 06:14 10/04/24 04:48 10/03/24 21:50 Creatinine 0.78 mg/dL (0.550-1.02) Glomerular Filtration Rate Calc 96 mL/min (>90) Vancomycin Level Trough 13.5 ug/mL (5-10) White Blood Count 8.9 10^3/uL (4.4-10.8) Red Blood Count 4.59 10^6/uL (4.0-5.20) Hemoglobin 14.1 g/dL (12.2-16.2) Hematocrit 41.3 % (36.0-46.0) Mean Corpuscular Volume 90.1 fL (80.0-100.0) Mean Corpuscular Hemoglobin 30.8 pg (28.0-32.0) Mean Corpuscular Hemoglobin Concent 34.1 g/dL (32.0-36.0) Red Cell Distribution Width 14.0 % (11.8-14.3) Platelet Count 273 10^3/uL (140-450) Mean Platelet Volume 7.4 fL (6.9-10.8) Neutrophils (%) (Auto) 73.6 % (37.0-80.0) Lymphocytes (%) (Auto) 13.3 % (10.0-50.0) Monocytes (%) (Auto) 9.2 % (0.0-12.0) Eosinophils (%) (Auto) 3.4 % (0.0-7.0) Basophils (%) (Auto) 0.5 % (0.0-2.0) Neutrophils # (Auto) 6.6 10 ^3/uL (1.6-8.6) Lymphocytes # (Auto) 1.2 10 ^3/uL (0.4-5.4) Monocytes # (Auto) 0.8 10 ^3/uL (0-1.3) Eosinophils # (Auto) 0.3 10 ^3/uL (0-0.8) Basophils # (Auto) 0 10 ^3/uL (0-0.2) Nucleated Red Blood Cells 0.1 % Sodium Level 135 mmol/L (136-145) Potassium Level 3.7 mmol/L (3.5-5.1) Chloride Level 101 mmol/L (98-107) Carbon Dioxide Level 27 mmol/L (20-31) Anion Gap 7 (5-15) Blood Urea Nitrogen 10 mg/dL (9-23) BUN/Creatinine Ratio 12.8 (10.0-20.0) Serum Glucose 90 mg/dL (74-106) Calcium Level 9.9 mg/dL (8.7-10.4) Total Bilirubin 0.6 mg/dL (0.2-1.0) Aspartate Amino Transferase (AST) 13 U/L (13-40) Alanine Aminotransferase (ALT) 16 U/L (7-40) Alkaline Phosphatase 58 U/L (46-116) Total Protein 7.5 g/dL (5.7-8.2) Albumin 4.5 g/dL (3.2-4.8) B-Type Natriuretic Peptide 32.94 pg/mL (0-100) Triglycerides Level 98 mg/dL (< 150) Cholesterol Level 111 mg/dL (< 200) LDL Cholesterol 61 mg/dL (< 100) HDL Cholesterol 36 mg/dL (40-59) Lactic Acid Level 1.4 mmol/L (0.4-2.0) Test 10/03/24 21:40 Influenza Type A Antigen Negative (Negative) Influenza Type B Antigen Negative (Negative) SARS-CoV-2 Antigen (Rapid) Negative (NEGATIVE) Other Laboratory Tests 10/06/24 11:21 10/05/24 06:14 Brief Hx & Hospital Course: Cellulitis of right lower extremity Leukocytosis, unspecified Morbid obesity with BMI of 50.0-59.9, adult HTn discharged to home with oral Abx Condition at Discharge: Fair Final Diagnosis/Problems List Cellulitis of right lower extremity Leukocytosis, unspecified Morbid obesity with BMI of 50.0-59.9, adult Discharge Disposition: Home Discharge Instruct/Medications Diet: Cardiac 2g Na,low cholest Activity: No Restrictions, As Tolerated Discharge Statement: "Patient was advised to return to the ER or call 911 if any headaches, dizziness, shortness of breath, chest pain, abdominal pain, bleeding, fevers, or worsening of medical condition. Patient was counseled about treatment plan, medications, possible side effects, patientverbalized understanding. All questions were answered to the best of my ability. This discharge took greater then 30 minutes in planning, reviewing documentation, counseling the patient, and discussing with other team members." ASSESSMENT ASSESSMENT Assessment Date of Service: October 06, 2024 Billing Provider: EV JASON DO Common Visit Codes: [id number]/[id number] DISCH DAY >30min EV JASON DO October 06, 2024 12:56
[2024-10-06] MEDS ORDERED: PIPERACILLIN-TAZOB 3.375GM 100 ML IV SCH (22:00)
== END 2024-10-06 18:44 | disposition home or self-care (01) | DRG 720 ==
LOC: EDBD 20:42 → ER 20:42 → OVERFLOW 10-04 01:14 → WEST WING 10-04 21:00
PROVIDERS: ADMIT Internal Medicine; ATTEND Internal Medicine
DX: A41.9 Sepsis, unspecified organism (principal); I50.41 Acute combined systolic (congestive) and diastolic (congestive) heart failure; Z68.43 Body mass index [BMI] 50.0-59.9, adult; Z20.822 Contact with and (suspected) exposure to COVID-19; L03.115 Cellulitis of right lower limb; E66.01 Morbid (severe) obesity due to excess calories; E78.5 Hyperlipidemia, unspecified; I11.0 Hypertensive heart disease with heart failure; I50.9 Heart failure, unspecified; Z98.84 Bariatric surgery status
CPT/HCPCS: 36415; 71046; 80048; 80053; 80061; 80202; 82565; 83605; 83880; 85025; 87040; 87426; 87804; 93306; 93971; 94660; 96365; G0378; J2543

== ENCOUNTER 2025-01-31 11:05 | Emergency (ER) | payer MEDICAID ==
[~2025-01-31] VITALS: Ht 160 cm; Wt 156.8 kg
[~2025-01-31 11:05] MED LIST: ATOR20TA50 PO; FENO67CA16 PO; FURO80TA3 PO; LEVO500T91 PO; LISI20TA56 PO; SEMA2.4I
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
[2025-01-31] MEDS: ACETAMINOPHEN 500 MG TAB or CAP PO ONE (12:19)
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
[2025-01-31 13:41] VITALS: BP 113/60; PULSE 61; RESP 16; TEMP 97.9; O2SAT 98
[2025-01-31] MEDS ORDERED: IBUP-1456 PO (14:08)
[2025-01-31] MEDS ORDERED: METH-1182 PO (14:08)
== END 2025-01-31 14:22 | disposition home or self-care (01) ==
LOC: ER 11:05 → EDBD 11:05 → ER 14:22
DX: S16.1XXA Strain of muscle, fascia and tendon at neck level, initial encounter (principal); G44.319 Acute post-traumatic headache, not intractable; I11.0 Hypertensive heart disease with heart failure; I50.9 Heart failure, unspecified; E78.5 Hyperlipidemia, unspecified; Z79.899 Other long term (current) drug therapy; V89.2XXA Person injured in unspecified motor-vehicle accident, traffic, initial encounter; Y93.I9 Activity, other involving external motion; Y92.488 Other paved roadways as the place of occurrence of the external cause; Y99.8 Other external cause status
CPT/HCPCS: 70450; 72040